=== PATIENT | female | born 1975 | race Two or more races ===

== ENCOUNTER 2024-05-31 07:26 | Emergency (ER) | payer OTHER ==
[~2024-05-31] VITALS: Ht 165.1 cm; Wt 99.8 kg
[2024-05-31] MEDS ORDERED: LEVALBUTEROL HCL 1.25 MG/3 ML SOLUTION IH STA (08:29)
[2024-05-31] MEDS ORDERED: LEVALBUTEROL HCL 1.25 MG/3 ML SOLUTION IH ONE (08:58)
[2024-05-31 08:59] LABS: HEMATOCRIT 36.3 % (36.0-45.00); HEMOGLOBIN 12.5 g/dL (12.0-15.00); MEAN CELL VOLUME 92.3 fL (80.00-100.00); MEAN CORPUSCULAR HEMOGLOBIN 31.8 pg (27.00-32.0); MEAN CORPUSCULAR HGB CONC 34.4 g/dl (32.0-36.0); PLATELET COUNT 257 K/uL (150-450); RED BLOOD COUNT 3.93 M/uL (4.00-6.00); RED CELL DISTRIBUTION WIDTH 13.9 % (11.5-14.5)
== END 2024-05-31 10:02 | disposition home or self-care (01) ==
LOC: ER 07:29
PROVIDERS: General Practice
DX: R05.8 Other specified cough (principal); J45.909 Unspecified asthma, uncomplicated; M25.59 Pain in other specified joint; Z20.822 Contact with and (suspected) exposure to COVID-19

== ENCOUNTER 2025-03-09 06:54 | Outpatient (CLI) | payer OTHER ==
[2025-03-09 07:42] LABS: URINE APPEARANCE Clear; URINE BILIRRUBIN Negative (NEGATIVE); URINE BLOOD Negative; URINE COLOR Yellow; URINE GLUCOSE Negative (NEGATIVE); URINE KETONE Trace (NEGATIVE); URINE LEUKOCYTE Trace; URINE NITRATE Negative; URINE PROTEIN Negative (NEGATIVE); URINE UROBILINOGEN 0.2 E.U./dl
[2025-03-09 07:46] LABS: URINE BACTERIA 855.5 uL (0.0-1933); URINE EPITHELIAL CELLS 55.1 uL (0.0-38.8); URINE WBC 26.2 uL (0.0-23.2)
[2025-03-09 07:53] LABS: BASO % 0.6 % (0.1-1.2); EOS # 0.06 (0.04-0.54); EOS % 1.3 % (0.7-7.0); LYMPH # 1.33 (1.18-3.74); LYMPH % 28.7 % (19.3-53.1); MEAN PLATELET VOLUME 11.70 fl (9.4-12.4); MONO # 0.45 (0.24-0.82); MONO % 9.7 % (4.7-12.5); NEUT # 2.75 (1.56-6.13); NEUT % 59.5 % (34.0-71.1); RED CELL DISTRIBUTION WIDTH 12.8 % (11.6-14.4)
[2025-03-09 07:54] LABS: URINE CAST 0.00 uL (0.0-1.40); URINE RBC 1.9 uL (0.0-20.8)
[2025-03-09 08:05] LABS: ERYTHROCYTE SEDIMENTATION RATE 29 mm/hr (0-20)
[2025-03-09 08:43] LABS: ALT/SGPT 34 U/L (12-78); AST/SGOT 19 U/L (15-37); BILIRUBIN TOTAL 0.64 mg/dL (0.3-1.2); BUN CREA RATIO 27 (7.0-25.0); CHOL HDL RATIO 3.2 (0-5.0); CREATININE SERUM 0.74 mg/dL (0.55-1.02); FREE TRIODOTIRONINE 3.07 pg/ml (2.18-3.98); GFR 84.12; GLOBULINA 3.9 G/DL (2.4-3.5); GLUCOSE FASTING 79 mg/dL (65-100); HDL 60 mg/dl (40-60); LDL 114 mg/dl (0-130); OSMOLALITY SERUM 281 MOSM/KG (275-295); T4 FREE 1.08 NG/ML (0.76-1.46); TSH 2.690 uIU/mL (0.358-3.74); VLDL 16 (0-39)
[2025-03-10 06:06] LABS: INSULIN LEVELS 13.5 uIU/mL (2.6-24.9); LEUTEINIZING HORMONE 4.1 mIU/mL (.); PROGESTERONA 14.2 ng/mL (.)
[2025-03-10 10:10] LABS: ANTI THYROID PEROXIDASE 10.0 IU/mL (0-34); ESTRADIOL SERUM 94.1 pg/mL (.)
[2025-03-11 20:06] LABS: T T 23.0 ng/dL (4-50); test free 0.8 pg/mL (0.0-4.2)
== END 2025-03-09 07:01 | disposition home or self-care (01) ==
LOC: LAB 06:54
DX: E03.9 Hypothyroidism, unspecified (principal); E04.0 Nontoxic diffuse goiter; Z13.0 Encounter for screening for diseases of the blood and blood-forming organs and certain disorders involving the immune mechanism; E55.9 Vitamin D deficiency, unspecified; E66.9 Obesity, unspecified; R73.09 Other abnormal glucose; E78.00 Pure hypercholesterolemia, unspecified; F51.01 Primary insomnia; M19.90 Unspecified osteoarthritis, unspecified site; L68.0 Hirsutism; R89.1 Abnormal level of hormones in specimens from other organs, systems and tissues; N95.1 Menopausal and female climacteric states; R68.82 Decreased libido; E65 Localized adiposity; R94.5 Abnormal results of liver function studies; N52.9 Male erectile dysfunction, unspecified; Z12.5 Encounter for screening for malignant neoplasm of prostate; N39.0 Urinary tract infection, site not specified; N95.9 Unspecified menopausal and perimenopausal disorder; R11.2 Nausea with vomiting, unspecified; R74.8 Abnormal levels of other serum enzymes; E27.0 Other adrenocortical overactivity; N41.0 Acute prostatitis